=== PATIENT | male | born 1970 | race African-American/Black ===

== ENCOUNTER 2025-01-03 16:58 | Emergency (ER) | payer OTHER ==
[2025-01-03 19:09] LABS: Absolute Lymphocytes (CBC) 2.2 K/uL (0.7-4.9); Hematocrit 47.0 % (39.6-49.0); Hemoglobin 15.3 g/dL (13.6-17.9); MCH 27.7 pg (27.0-35.0); MCHC 32.6 g/dL (32.0-36.0); MCV 84.9 fL (80-100); MPV 9.0 fL (7.6-11.3); Nucleated RBC Absolute Count 0.0 (0-0); Nucleated Red Blood Cells % 0.1 % (0-0); RBC Red Blood Cell Count 5.53 M/uL (4.33-5.43); White Blood Count 8.30 thou/uL (4.3-10.9)
[2025-01-03] MEDS ORDERED: TETRACAINE HCL 0.5% 4ML OPTH ONE (19:12)
[2025-01-03] MEDS ORDERED: NA CHLORIDE 0.9% 1,000 ML ONE (19:13)
[2025-01-03 19:20] LABS: ALT/SGPT 22.0 U/L (16-61); AST/SGOT 18.0 U/L (15-37); Albumin 4.0 g/dL (3.4-5.0); Albumin/Globulin Ratio 1.2 (1.1-1.8); Alkaline Phosphatase 90.0 U/L (45-117); Anion Gap 8.0 mEq/L (5.0-15.0); BUN Blood Urea Nitrogen 11.0 mg/dL (7-18); Globulin 3.3 g/dL (2.3-3.5); Glucose Level 104.0 mg/dL (74-106); Lipase 22.0 U/L (13-75); Potassium 4.0 mEq/L (3.5-5.1)
[2025-01-03] MEDS ORDERED: FLUORESCEIN SODIUM 1 MG/WRAP ONE (19:30)
--- NOTE | 2025-01-03 19:56 | ER ---
Nurse's Notes [facility] Name: Kalpesh Singh Age: 54 yrs Sex: Male : 1970 Arrival Date: 01/03/2025 Time: 16:58 Bed 2 Private MD: Diagnosis: Injury of conjunctiva and corneal abrasion without foreign body, right eye;Unspecified acute conjunctivitis, right eye Presentation: 01/03 17:51 Chief complaint: Patient states: RT EYE HAS BEEN RED, PAINFUL , WATERY AND HAVING dd2 BLURRED VISION IN THE EYE SINCE FRIDAY. PT REPORTS FEELS LIKE SOMETHING SCRATCHING HIS EYE. PT ALSO REPORTS FEELING THIRSTY ALL THE TIME, URINATING CONSTANTLY AND FEEL FEELING LIKE PINS AND NEEDLES. Coronavirus screen: At this time, the client does not indicate any symptoms associated with coronavirus-19. Ebola Screen: No symptoms or risks identified at this time. Mechanism of Injury: No Mechanism of Injury. The patient denies any loss of vision. Initial Sepsis Screen: Does the patient meet any 2 criteria? No. Patient's initial sepsis screen is negative. Does the patient have a suspected source of infection? No. Patient's initial sepsis screen is negative. Risk Assessment: Do you want to hurt yourself or someone else? Patient reports no desire to harm self or others. Onset of symptoms was January 01, 2025. 17:51 Method Of Arrival: Ambulatory dd2 17:51 Acuity: NAVA 3 dd2 Triage Assessment: 17:54 General: Appears in no apparent distress. uncomfortable, Behavior is calm, cooperative, dd2 appropriate for age. Pain: Complains of pain in right eye, HEAD. EENT: Eyes are tearing on outer aspect of conjuctiva of right eye and inner aspect of conjuctiva of right eye Sclera/Cornea are reddened in outer aspect of conjuctiva of right eye and inner aspect of conjuctiva of right eye Reports pain in right eye. Historical: - Allergies: 17:54 No Known Allergies; dd2 - PMHx: 17:54 None; dd2 - PSHx: 17:54 None; dd2 - Immunization history:: Adult Immunizations unknown. - Infectious Disease History:: Denies. - Social history:: Smoking status: Patient reports the use of cigarette tobacco products, smokes one-half pack cigarettes per day. Screenin:22 [facility] ED Fall Risk Assessment (Adult) History of falling in the last 3 months, lg3 including since admission No falls in past 3 months (0 pts) Confusion or Disorientation No (0 pts) Intoxicated or Sedated No (0 pts) Impaired Gait No (0 pts) Mobility Assist Device Used No (0 pt) Altered Elimination No (0 pt) Score/Fall Risk Level 0 - 2 = Low Risk Oriented to surroundings, Maintained a safe environment, Educated pt \T\ family on fall prevention, incl call for assistance when getting out of bed, Assessed \T\ reinforced patient's understanding of fall precautions. Abuse screen: Denies threats or abuse. Denies injuries from another. Nutritional screening: No deficits noted. Tuberculosis screening: No symptoms or risk factors identified. Assessment: 19:22 General: Appears in no apparent distress. comfortable, Behavior is calm, cooperative. lg3 Pain: Complains of pain in right eye. Neuro: No deficits noted. Osng Agitation-Sedation Scale (RASS): 0 - Alert and Calm Level of Consciousness is awake, alert, obeys commands, Oriented to person, place, time, situation. Cardiovascular: No deficits noted. Denies chest pain, shortness of breath, Capillary refill < 3 seconds Clubbing of nail beds is absent JVD is absent Patient's skin is warm and dry. Respiratory: No deficits noted. Airway is patent Respiratory effort is even, unlabored, Respiratory pattern is regular, symmetrical. GI: No deficits noted. No signs and/or symptoms were reported involving the gastrointestinal system. : No signs and/or symptoms were reported regarding the genitourinary system. EENT: Eyes are tearing on right eye Sclera/Cornea are reddened in right eye. Derm: No deficits noted. No signs and/or symptoms reported regarding the dermatologic system. Skin is intact, is healthy with good turgor, Skin is dry, Skin is normal, Skin temperature is warm. Musculoskeletal: No deficits noted. No signs and/or symptoms reported regarding the musculoskeletal system. Circulation, motion, and sensation intact. Range of motion: intact in all extremities. Vital Signs: 17:51 BP 110 / 87; Pulse 73; Resp 16; Temp 98.2; Pulse Ox 99% on R/A; Weight 86.18 kg; Pain dd2 8/10; 19:22 BP 124 / 92; Pulse 62; Resp 16 S; Pulse Ox 99% on R/A; lg3 17:51 Pain Scale: Adult dd2 Visual Acuity: 19:57 Left Eye Visual acuity 20/20, Pupil size 6 mm, Normal, React To Light, Reactive To lg3 Accomodation; Right Eye Visual acuity 20/20, Pupil size 6 mm, Normal, React To Light, Reactive To Accomodation; Both Eyes Visual acuity 20/20; Without Lenses; ED Course: 17:02 Patient arrived in ED. im 17:22 Tonia Boswell PA-C is PHCP. sb4 17:22 Gigi Ibarra MD is Attending Physician. sb4 17:54 Triage completed. dd2 17:54 Arm band placed on right wrist. dd2 18:35 Patient placed in an exam room, on a stretcher. ll1 18:40 Crow Resendez, RN is Primary Nurse. bp 18:52 CBC with Diff Sent. bc6 18:52 CMP Sent. bc6 18:52 Lipase Sent. bc6 18:52 Initial lab(s) drawn, by in, sent to lab. Inserted saline lock: 20 gauge in right bc6 forearm, using aseptic technique. Blood collected. Flushed with 10 mL NS. 19:22 Patient has correct armband on for positive identification. Placed in gown. Bed in low lg3 position. Call light in reach. Side rails up X 1. Client placed on continuous cardiac and pulse oximetry monitoring. NIBP monitoring applied. Door closed. Noise minimized. Warm blanket given. Family accompanied patient. 19:41 Primary Nurse role handed off by Crow Resendez, RN rv1 19:48 Corinne Roche RN is Primary Nurse. lg3 19:55 Jefferson Peña MD is Referral Physician. sb4 20:06 Assist provider with eye exam of right eye. using fluorescein stain, Performed by lg3 Tonia Boswell PA-C Patient tolerated well. 20:06 IV discontinued, intact, bleeding controlled, No redness/swelling at site. Pressure lg3 dressing applied. Administered Medications: 19:25 Drug: NS 0.9% IV 1000 ml IV at 1 bolus Per protocol; to be given as a bolus over 60 lg3 minutes Route: IV; Rate: 1 bolus; Site: right forearm; 19:57 Follow up: Response: No adverse reaction; IV Status: Completed infusion; IV Intake: lg3 1000ml 19:57 Drug: Tetracaine Ophthalmic Drops 0.5 % 1 drops Ophthalmic once Route: Ophthalmic; lg3 Site: right eye; Medication: 19:22 VIS not applicable for this client. lg3 Intake: 19:57 IV: 1000ml; Total: 1000ml. lg3 Outcome: 19:55 Discharge ordered by . sb4 20:06 Discharged to home ambulatory, with family, lg3 20:06 Condition: stable 20:06 Discharge instructions given to patient, Instructed on discharge instructions, follow up and referral plans. medication usage, Demonstrated understanding of instructions, follow-up care, medications, Prescriptions given X 1, 20:07 Patient left the ED. lg3 Signatures: Crow Resendez, RN RN bp Corinne Roche RN RN lg3 Brian Cowan, RN RN ll1 Tonia Boswell, PA-[place] PA-C sb4 [address] rv1 Yolanda Victor bc6 Mariana Rangel DIANA RN RN dd2
--- NOTE | 2025-01-03 19:56 | EDPHYS ---
Physician Documentation [facility] Name: Kalpesh Singh Age: 54 yrs Sex: Male : 1970 Arrival Date: 01/03/2025 Time: 16:58 Bed 2 Private MD: ED Physician Gigi Ibarra HPI: 01/03 18:21 This 54 yrs old Male presents to ER via Ambulatory with complaints of Eye Pain - right, sb4 Blurred Vision - Right. 18:21 Foreign body sensation in right eye as well as redness and pain with movement. Thinks sb4 something may have gotten in his eye at work but is not sure. Denied does not wear any glasses or contacts. Also reports excessive thirst and frequent urination but does have an appointment with his primary care this upcoming week. No nausea or vomiting. Historical: - Allergies: 17:54 No Known Allergies; dd2 - PMHx: 17:54 None; dd2 - PSHx: 17:54 None; dd2 - Immunization history:: Adult Immunizations unknown. - Infectious Disease History:: Denies. - Social history:: Smoking status: Patient reports the use of cigarette tobacco products, smokes one-half pack cigarettes per day. ROS: 18:21 Constitutional: Negative for fever, chills, and weight loss, sb4 18:21 Eyes: Positive for per HPI, 18:21 All other systems are negative, Exam: 19:57 Visual Acuity: I have reviewed the nursing documentation. sb4 19:57 Constitutional: This is a well developed, well nourished patient who is awake, alert, and in no acute distress. Head/Face: Normocephalic, atraumatic. ENT: Mucous membranes moist. Cardiovascular: Regular rate and rhythm with a normal S1 and S2. Respiratory: No increased work of breathing, no retractions or nasal flaring. Abdomen/GI: Soft, non-tender, no distension. Skin: Warm, dry with normal turgor. Normal color with no rashes, no lesions, and no evidence of cellulitis. 19:57 Eyes: Periorbital structures: appear normal, Pupils: equal, round, and reactive to light and accomodation, Extraocular movements: intact throughout, Conjunctiva: injected, in the right eye, Corneas: abrasion, that is small, on the right, foreign body, is not appreciated, a fluorescein strip employed to appreciate the findings, Lids and lashes: appear normal, Vital Signs: 17:51 BP 110 / 87; Pulse 73; Resp 16; Temp 98.2; Pulse Ox 99% on R/A; Weight 86.18 kg; Pain dd2 8/10; 19:22 BP 124 / 92; Pulse 62; Resp 16 S; Pulse Ox 99% on R/A; lg3 17:51 Pain Scale: Adult dd2 Visual Acuity: 19:57 Left Eye Visual acuity 20/20, Pupil size 6 mm, Normal, React To Light, Reactive To lg3 Accomodation; Right Eye Visual acuity 20/20, Pupil size 6 mm, Normal, React To Light, Reactive To Accomodation; Both Eyes Visual acuity 20/20; Without Lenses; Procedures: 19:58 Eye Exam: Tetracaine. sb4 MDM: 17:31 Medical Screening Exam initiated sb4 19:58 Differential diagnosis: Corneal abrasion of right eye. Corneal ulcer of right eye. sb4 Foreign body in right eye. Acute iritis of right eye. Chemical conjunctivitis in right eye. Allergic conjunctivitis in right eye. Infectious conjunctivitis in right eye. Data reviewed: vital signs, nurses notes, lab test result(s), and as a result, I will discharge patient. Counseling: I had a detailed discussion with the patient and/or guardian regarding the historical points, exam findings, and any diagnostic results supporting the discharge/admit diagnosis, lab results, the need for outpatient follow up, for definitive care, to return to the emergency department if symptoms worsen or persist or if there are any questions or concerns that arise at home. 01/03 17:58 Order name: CBC with Diff; Complete Time: 19:14 sb4 01/03 17:58 Order name: CMP; Complete Time: 19:27 sb4 01/03 17:58 Order name: Lipase; Complete Time: 19:27 sb4 01/03 18:03 Order name: Glucose, Ancillary Testing; Complete Time: 18:03 EDMS 01/03 17:58 Order name: Fluoresene Opth strip; Complete Time: 19:25 sb4 01/03 17:58 Order name: IV Saline Lock; Complete Time: 18:52 sb4 01/03 17:58 Order name: Labs collected and sent; Complete Time: 18:52 sb4 01/03 18:26 Order name: Visual Acuity; Complete Time: 19:56 sb4 Administered Medications: 19:25 Drug: NS 0.9% IV 1000 ml IV at 1 bolus Per protocol; to be given as a bolus over 60 lg3 minutes Route: IV; Rate: 1 bolus; Site: right forearm; 19:57 Follow up: Response: No adverse reaction; IV Status: Completed infusion; IV Intake: lg3 1000ml 19:57 Drug: Tetracaine Ophthalmic Drops 0.5 % 1 drops Ophthalmic once Route: Ophthalmic; lg3 Site: right eye; Disposition Summary: 01/03/25 19:55 Discharge Ordered Notes: Location: Home sb4 Problem: new sb4 Symptoms: have improved sb4 Condition: Stable sb4 Diagnosis - Injury of conjunctiva and corneal abrasion without foreign body, right eye sb4 - Unspecified acute conjunctivitis, right eye sb4 Followup: sb4 - With: Jefferson Peña MD - When: As needed - Reason: Recheck today's complaints, Re-evaluation by your physician Discharge Instructions: - Discharge Summary Sheet sb4 - Bacterial Conjunctivitis, Adult sb4 - Corneal Abrasion, [id number] sb4 Forms: - Antibiotic Education sb4 - Patient Portal Instructions sb4 - Leadership Thank You Letter sb4 Prescriptions: - Vigamox 0.5 % Ophthalmic Drops - instill 1 drop OPHTHALMIC route every 8 hours for 7 days; 5 milliliter; sb4 Refills: 0, Product Selection Permitted Addendum: 01/06/2025 14:34 Co-signature as Attending Physician, Gigi Ibarra MD I agree with the assessment and c parham plan of care. Signatures: Dispatcher [employer] EDGigi Sommers MD MD cha Able, Lacie, RN RN lg3 Tonia Boswell PA-C PASarah [email or web address] CASEY FISHER, RN RN dd2
[2025-01-03 20:52] VITALS: TEMP 98.2; O2SAT 99
[2025-01-03 20:53] VITALS: BP 124/92
== END 2025-01-03 20:07 | disposition home or self-care (01) ==
LOC: ER 16:58
DX: S05.01XA Injury of conjunctiva and corneal abrasion without foreign body, right eye, initial encounter (principal); H10.31 Unspecified acute conjunctivitis, right eye; F17.210 Nicotine dependence, cigarettes, uncomplicated
CPT/HCPCS: 85025; 36415; 82947; 83690; 80053; 96360; 99285; J7030